=== PATIENT | male | born 1975 | race Caucasian/White ===

== ENCOUNTER 2017-06-27 19:04 | Emergency (ER) | payer BC ==
[2017-06-27] MEDS ORDERED: Cyclobenzaprine 10 MG Tab PO ONE (20:26)
--- NOTE | 2017-06-27 20:38 | EDM.PDOC ---
ED HPI GENERAL MEDICAL PROBLEM - General Chief Complaint: Back Pain or Injury Stated Complaint: BACK HURTS NOT AN ACCIDENT Time Seen by Provider: 06/27/17 20:20 Source of Information: Reports: Patient, RN History Limitations: Reports: No Limitations - History of Present Illness INITIAL COMMENTS - FREE TEXT/NARRATIVE: 41 yo male presents with low back tightness today. Had to leave work early today because of it. Is not sure if recent shoveling at home brought this on. No radiation down his leg(s), no increased pain with coughing. Hurts to move. No relief with ibuprofen. Onset: Today Onset Date: 06/27/17 Onset Time: 12:00 Duration: Hour(s):, Constant Location: Reports: Back. Denies: Radiates to Quality: Reports: Ache Severity: Moderate Improves with: Reports: Immobilization. Denies: Medication Worsens with: Reports: Movement Context: Reports: Other (? due to recent snow shoveling) Associated Symptoms: Reports: No Other Symptoms Treatments [employer]: Reports: NSAIDS middle lower back Pain Score (Numeric/FACES): 10 - Related Data Allergies Allergy/AdvReac Type Severity Reaction Status Date / Time No Known Allergies Allergy Verified 06/27/17 20:12 Home Meds: Home Meds Cyclobenzaprine [Flexeril] 10 mg PO TID PRN #10 tab 06/27/17 [Rx] Past Medical History Endocrine/Metabolic History: Reports: Obesity/BMI 30+ - Infectious Disease History Infectious Disease History: Reports: Chicken Pox - Past Surgical History Cardiovascular Surgical History: Reports: Coronary Artery Bypass, Other (See Below) Other Cardiovascular Surgeries/Procedures: 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 Social & Family History - Family History Family Medical History: Unobtainable - Tobacco Use Smoking Status *Q: Never Smoker Second Hand Smoke Exposure: No - Caffeine Use Caffeine Use: Reports: None - Recreational Drug Use Recreational Drug Use: No ED ROS GENERAL - Review of Systems Review Of Systems: See Below Constitutional: Reports: No Symptoms HEENT: Reports: No Symptoms Respiratory: Reports: No Symptoms Cardiovascular: Reports: No Symptoms GI/Abdominal: Reports: No Symptoms : Reports: No Symptoms Musculoskeletal: Reports: Back Pain (low at belt line) Skin: Reports: No Symptoms Neurological: Reports: No Symptoms ED EXAM,LOWER BACK PAIN/INJURY - Physical Exam Exam: See Below Exam Limited By: No Limitations General Appearance: Alert, WD/WN, No Apparent Distress, Obese Back Exam: Normal Inspection, Paraspinal Tenderness (bilaterally at belt line.) . No: CVA Tenderness (R), CVA Tenderness (L), Vertebral Tenderness Extremities: Normal Inspection, Normal Range of Motion, Non-Tender Neurological: Alert, Normal Dorsiflexion, CN II-XII Intact, Normal Plantar Flexion, No Motor/Sensory Deficits, Oriented x 3 Psychiatric: Normal Affect, Normal Mood Skin Exam: Warm, Dry, Intact, Normal Color, No Rash Course - Vital Signs Last Recorded V/S: Last Vital Signs Temp 36.8 C 06/27/17 20:10 Pulse 67 06/27/17 19:58 Resp 14 06/27/17 20:10 BP 158/60 H 06/27/17 20:10 Pulse Ox 98 06/27/17 20:10 - Orders/Labs/Meds Meds: Medications Discontinued Medications Generic Name Dose Route Start Last Admin Trade Name Freq PRN Reason Stop Dose Admin Cyclobenzaprine HCl 10 mg 06/27/17 20:26 Flexeril PO 06/27/17 20:27 ONETIME ONE Departure - Departure Time of Disposition: 20:37 Disposition: Home, Self-Care 01 Condition: Fair Clinical Impression: Low back strain Qualifiers: Encounter type: initial encounter Qualified Code(s): S39.012A - Strain of muscle, fascia and tendon of lower back, initial encounter - Discharge Information Prescriptions: Cyclobenzaprine [Flexeril] 10 mg PO TID PRN #10 tab PRN Reason: Pain Instructions: Muscle Strain, [id number] Referrals: PCP,None [Primary Care Provider] - Forms: ED Department Discharge Additional Instructions: Take a combination of Flexeril, ibuprofen and acetaminophen for pain relief. Follow directions on the bottle for dosing. Avoid heavy lifting, twisting or bending over the weekend. Moist heat and massage to the area may be helpful. Walking is good for your back. Recheck as needed.
== END 2017-06-27 20:50 | disposition home or self-care (01) ==
LOC: JP.ED 19:04
DX: S39.012A Strain of muscle, fascia and tendon of lower back, initial encounter (principal); X58.XXXA Exposure to other specified factors, initial encounter; E66.9 Obesity, unspecified
CPT/HCPCS: 99283; A9270

== ENCOUNTER 2017-11-02 10:10 | Emergency (ER) | payer BC ==
--- NOTE | 2017-11-02 10:38 | EDM.PDOC ---
ED HPI GENERAL MEDICAL PROBLEM - General Chief Complaint: Laceration Stated Complaint: LIP BLEEDING Time Seen by Provider: 11/02/17 10:35 Source of Information: Reports: Patient History Limitations: Reports: No Limitations - History of Present Illness INITIAL COMMENTS - FREE TEXT/NARRATIVE: pt stepped on a rake and the handle came up and hit him in the upper lip area. He has a 1 inch laceration on the upper lip. It did not go through and through Onset: Today Duration: Hour(s): Location: Reports: Face Associated Symptoms: Reports: No Other Symptoms Upper Lip Pain Score (Numeric/FACES): 5 - Related Data Allergies Allergy/AdvReac Type Severity Reaction Status Date / Time No Known Allergies Allergy Verified 06/27/17 20:12 Home Meds: Home Meds Cyclobenzaprine [Flexeril] 10 mg PO TID PRN #10 tab 06/27/17 [Rx] Past Medical History Endocrine/Metabolic History: Reports: Obesity/BMI 30+ - Infectious Disease History Infectious Disease History: Reports: Chicken Pox - Past Surgical History Cardiovascular Surgical History: Reports: Coronary Artery Bypass, Other (See Below) Other Cardiovascular Surgeries/Procedures: 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 Social & Family History - Family History Family Medical History: Unobtainable - Tobacco Use Smoking Status *Q: Never Smoker Second Hand Smoke Exposure: No - Caffeine Use Caffeine Use: Reports: None - Recreational Drug Use Recreational Drug Use: No ED ROS GENERAL - Review of Systems Review Of Systems: See Below Constitutional: Reports: No Symptoms HEENT: Reports: Other (Laceration on the inside of the upper lip) Respiratory: Reports: No Symptoms Cardiovascular: Reports: No Symptoms Endocrine: Reports: No Symptoms GI/Abdominal: Reports: No Symptoms : Reports: No Symptoms ED EXAM, SKIN/RASH Exam: See Below Text/Narrative:: Pt has a 1 inch laceration on the inside of the upper lip. Exam Limited By: No Limitations General Appearance: Alert, Anxious Throat/Mouth: Other ( 1 inch laceration on the inside of the upper lip) Neck: Normal Inspection Respiratory/Chest: No Respiratory Distress Course - Vital Signs Last Recorded V/S: Last Vital Signs Temp 36.5 C 11/02/17 10:56 Pulse 60 11/02/17 10:56 Resp 20 11/02/17 10:56 BP 157/92 H 11/02/17 10:56 Pulse Ox 96 11/02/17 10:56 - Orders/Labs/Meds Meds: Medications Discontinued Medications Generic Name Dose Route Start Last Admin Trade Name Ruthie PRN Reason Stop Dose Admin Lidocaine HCl 5 ml 11/02/17 10:34 11/02/17 10:50 Xylocaine-Mpf 1% INJECT 11/02/17 10:35 5 ml ONETIME ONE Administration - Re-Assessments/Exams Free Text/Narrative Re-Assessment/Exam: 11/02/17 10:54 pt has some small laceration in gum line that did not need sutures. He has a 1 inch laceration in the upper lip that was quite deep. It was cleansed and infiltrated with lidocaine. It was closed with 5-0 chromic. He was current with his tetanus. He was advised the stitches will disolve. 11/04/17 07:23 Departure - Departure Time of Disposition: 10:57 Disposition: Home, Self-Care 01 Condition: Fair Clinical Impression: Laceration - Discharge Information Instructions: Laceration Care, Adult, [id number] Referrals: PCP,None [Primary Care Provider] - Forms: ED Department Discharge Care Plan Goals: irrigate mouth with saline, avoid acid and salty things.
== END 2017-11-02 11:10 | disposition home or self-care (01) ==
LOC: JP.ED 10:10
DX: S01.511A Laceration without foreign body of lip, initial encounter (principal); E66.9 Obesity, unspecified; Z95.1 Presence of aortocoronary bypass graft; I25.810 Atherosclerosis of coronary artery bypass graft(s) without angina pectoris; W22.8XXA Striking against or struck by other objects, initial encounter; Z68.36 Body mass index [BMI] 36.0-36.9, adult
CPT/HCPCS: 12011; 99283-25

== ENCOUNTER 2020-03-23 05:13 | Emergency (ER) | payer BC ==
[2020-03-23] MEDS ORDERED: predniSONE 20 MG Tab ONE (06:06)
[2020-03-23] MEDS ORDERED: valACYclovir 1,000 MG Tab ONE (06:06)
[2020-03-23] MEDS: predniSONE 20 MG Tab PO ONE (06:08)
[2020-03-23] MEDS: valACYclovir 1,000 MG Tab PO ONE (06:09)
[2020-03-27 07:12] LABS: LYME IGG/IGM AB <0.91 ISR (0.00-0.90)
== END 2020-03-23 06:17 | disposition home or self-care (01) ==
LOC: JP.ED 05:13
DX: G51.0 Bell's palsy (principal)
CPT/HCPCS: 99284; A9270; J7512; 36415; 86618

== ENCOUNTER 2021-02-23 21:42 | Emergency (ER) | payer BC, MEDICAID ==
--- NOTE | 2021-02-23 22:41 | EDM.PDOC ---
ED HPI GENERAL MEDICAL PROBLEM - General Chief Complaint: Fever Stated Complaint: FEVER,CHILLS Time Seen by Provider: 02/23/21 22:30 Source of Information: Reports: Patient, Family History Limitations: Reports: No Limitations - History of Present Illness INITIAL COMMENTS - FREE TEXT/NARRATIVE: 45 year old male presenting with fever. The patient reports that he got the J&J COVID vaccine earlier today. He notes that this afternoon he felt very tired and slept in the car while riding back from [place]. He states that this evening he developed a fever to 101. He did not take anything for the fever. He denies any other symptoms - no headache, runny nose, cough, chest pain, SOB, abdominal pain, nausea, vomiting, or diarrhea. He otherwise feels in his usual state of health. - Related Data Allergies Allergy/AdvReac Type Severity Reaction Status Date / Time No Known Allergies Allergy Verified 02/23/21 22:29 Home Meds: Home Meds Lisinopril/Hydrochlorothiazide [Lisinopril-Hctz 20-25 mg Tab] 1 tab PO DAILY 02/23/21 [History] amLODIPine [Norvasc] 1 tab PO DAILY 02/23/21 [History] Past Medical History - Past Health History Medical/Surgical History: Denies Medical/Surgical History Cardiovascular History: Reports: Hypertension Endocrine/Metabolic History: Reports: Obesity/BMI 30+ - Infectious Disease History Infectious Disease History: Reports: Chicken Pox - Past Surgical History Cardiovascular Surgical History: Reports: Coronary Artery Bypass, Other (See Below) Other Cardiovascular Surgeries/Procedures: 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 Social & Family History - Family History Family Medical History: Unobtainable - Tobacco Use Tobacco Use Status *Q: Never Tobacco User - Caffeine Use Caffeine Use: Reports: None ED ROS GENERAL - Review of Systems Review Of Systems: Comprehensive ROS is negative, except as noted in HPI. ED EXAM, GENERAL - Physical Exam Exam: See Below Exam Limited By: No Limitations General Appearance: Alert, No Apparent Distress Eye Exam: Bilateral Eye: PERRL Ears: Normal External Exam, Normal Canal, Hearing Grossly Normal, Normal TMs Nose: Normal Mucosa. No: Nasal Drainage Throat/Mouth: Normal Inspection, Normal Oropharynx. No: Inflammation Head: Atraumatic, Normocephalic Neck: Supple, Full Range of Motion Respiratory/Chest: No Respiratory Distress, Lungs Clear, Normal Breath Sounds, No Accessory Muscle Use Cardiovascular: Regular Rate, Rhythm, Other (Murmur present) GI/Abdominal: Soft, Non-Tender Extremities: Normal Range of Motion Neurological: Alert, Oriented, CN II-XII Intact, Normal Cognition, No Motor/Sensory Deficits Psychiatric: Normal Affect, Normal Mood Skin Exam: Warm, Dry, No Rash Course - Vital Signs Last Recorded V/S: Last Vital Signs Temp 98.8 F 02/23/21 22:32 Pulse 86 02/23/21 22:32 Resp 16 02/23/21 22:32 BP 125/78 02/23/21 22:32 Pulse Ox 94 L 02/23/21 22:32 Departure - Departure Time of Disposition: 22:38 Disposition: Home, Self-Care 01 Clinical Impression: Fever after vaccination - Discharge Information Instructions: Fever, Adult, COVID-19 Vaccine Information Referrals: Rupinder Barros PA-C [Primary Care Provider] - Forms: ED Department Discharge Additional Instructions: You may have a few days of fevers, chills, body aches, and headache as a side effect of the COVID vaccine. You can use tylenol and/or ibuprofen as needed for symptoms. Sepsis Event Note (ED) - Evaluation Sepsis Screening Result: No Definite Risk - Focused Exam Vital Signs: Vital Signs Temp Pulse Resp BP Pulse Ox 02/23/21 22:32 98.8 F 86 16 125/78 94 L 02/23/21 22:28 98.8 F 86 16 125/78 94 L - Problem List Review Problem List Initiated/Reviewed/Updated: Yes - Assessment/Plan Assessment:: This is a 45 year old male presenting with a fever after receiving the J&J COVID vaccine about 12 hours prior to arrival. He is afebrile here and has not taken any fever-reducing medications. He otherwise has no other symptoms. His fever is likely secondary to receiving the COVID vaccine earlier today. Given his well appearance and that he has no other complaints, I do not feel a work-up with labs or imaging is indicated at this time. He was encouraged to use Tylenol and/or ibuprofen as needed for fever, body aches, headache, or other symptoms. Expected course after vaccination was discussed with the patient and his . He is appropriate for discharge home with primary care follow up as needed.
== END 2021-02-23 22:58 | disposition home or self-care (01) ==
LOC: JP.ED 21:42
DX: R50.9 Fever, unspecified (principal); T50.B95A Adverse effect of other viral vaccines, initial encounter; I10 Essential (primary) hypertension; E66.9 Obesity, unspecified; Z79.899 Other long term (current) drug therapy; Z68.39 Body mass index [BMI] 39.0-39.9, adult
CPT/HCPCS: 99283

== ENCOUNTER 2021-09-14 14:16 | Emergency (ER) | payer BC | END 2021-09-14 16:04 | disposition home or self-care (01) | LOC: JP.ED 14:16 | DX: K52.9 Noninfective gastroenteritis and colitis, unspecified (principal); I10 Essential (primary) hypertension; E66.9 Obesity, unspecified; Z68.41 Body mass index [BMI] 40.0-44.9, adult; Z79.899 Other long term (current) drug therapy | CPT/HCPCS: 36415; 80053; 85025; 99282; 99284 ==

== ENCOUNTER 2022-07-08 17:58 | Emergency (ER) | payer BC ==
[2022-07-08] MEDS ORDERED: Lidocaine 1% 5 ML VIAL INJECT ONE (18:26)
[2022-07-08] MEDS ORDERED: Bacitracin Oint 1 GM U/D Packet TOP ONE (18:27)
== END 2022-07-08 19:05 | disposition home or self-care (01) ==
LOC: JP.ED 17:58
DX: S61.211A Laceration without foreign body of left index finger without damage to nail, initial encounter (principal); I10 Essential (primary) hypertension; E66.9 Obesity, unspecified; Z68.39 Body mass index [BMI] 39.0-39.9, adult; Z79.899 Other long term (current) drug therapy; W26.0XXA Contact with knife, initial encounter
CPT/HCPCS: 12001; 99282